=== PATIENT | female | born 1950 | race Caucasian/White ===

== ENCOUNTER → 2024-03-31 07:23 | Outpatient (REF) | payer MEDICARE, SELFPAY | LOC: RAD 07:23 | PROVIDERS: ATTENDING PHYSICIAN Internal Medicine Critical Care Medicine | DX: Z87.891 Personal history of nicotine dependence (principal) | CPT/HCPCS: 71271 ==

== ENCOUNTER 2024-08-10 16:58 | Inpatient (IN) | payer MEDICARE, SELFPAY ==
--- NOTE | 2024-08-10 13:28 | ED.GENMED ---
ED Provider Triage
<Samantha Lema PA-C - Last Filed: 08/10/24 13:34>
-
Patient seen by provider in Triage?: Seen in Triage
Attestation: A medical screening examination has been initiated by a qualified medical provider. Based on the assessment performed at this time, it has been determined that an emergent medical condition may exist and the patient has been informed
that further medical evaluation and possible additional diagnostic testing may be needed.
HPI: 74yoF here with SOB and productive cough x 4 days. Oxygen saturation in the 80s at PCP's office today. Hx of COPD, not on oxygen.
GENERAL: Alert , in no apparent distress
EYE: No visual abnormalities.
NECK: Trachea midline
ENT: No visible abnormalities.
LUNGS: No acute respiratory distress
NEUROLOGICAL: Alert and oriented
SKIN: Skin intact. No visible changes.
MUSCULOSKELETAL: Moving extremities normally
PSYCH: Normal and appropriate interaction.
This is a medical evaluation conducted in person to initiate diagnostic evaluation and provide initial therapeutics. Please see further documentation by the treating clinician.
Cardiac labs, COVID/flu swab, EKG, and CXR ordered.
History of Present Illness
<Samantha Lema PA-C - Last Filed: 08/10/24 13:34>
General
Chief Complaint: Breathing Problem
Time Seen by Provider: 08/10/24 14:17
<Selene Burrows MD - Last Filed: 08/10/24 15:25>
History of Present Illness
History of Present Illness:
Patient is a 74-year-old woman with history of COPD, CAD status post bypass presenting to the emergency department with shortness of breath. Patient states for the past few days she has had cough congestion and worsening phlegm. She is been having
some dyspnea on exertion. He checked her oxygen this morning and it was 88%. She had an albuterol nebulizer treatment and called her rn integrated who told her to come here. Patient does state that she feels slightly better after the treatment.
She has been having some chills but no fever. No chest pain. No leg swelling or hemoptysis. No nausea vomiting or diarrhea
Phy Exam
<Selene Burrows MD - Last Filed: 08/10/24 15:25>
Physical Exam
Physical Exam:
GENERAL: in no acute distress
HEENT: normocephalic, extraocular movements intact, moist oral mucosa
NECK: normal inspection
RESPIRATORY: no respiratory distress, intermittent wheezing, rhonchorous breath sounds left base
CARDIOVASCULAR: regular rate and rhythm
ABDOMEN/: soft, non-distended, non-tender to palpation, no rebound or guarding
EXTREMITIES: non-tender, no edema/swelling
NEUROLOGIC: awake and alert, moves all extremities
SKIN: warm
Scores
<Selene Burrows MD - Last Filed: 08/10/24 15:25>
Heart Failure Risk
Heart Failure Risk Score: Not Applicable
Course
<Samantha Lema PA-C - Last Filed: 08/10/24 13:34>
Orders/Labs/Results
Orders:
Orders
08/10/24 13:31
Electrocardiogram (*1) Urgent
Reason for Study: Shortness of Breath
EKG- Treatment ONCE
CR Chest - 2 Views Urgent
Comment:
Reason For Exam: SOB
08/10/24 13:38
Comprehensive Metabolic Panel Urgent
Troponin I Urgent
08/10/24 13:42
COVID-19 Antigen Urgent
Source: Nasal Swab
Complete Blood Count/With Diff Urgent
Influenza A+B Rapid Molecular Urgent
ALEXX Source: Nasal Swab
Specimen Description:
08/10/24 15:07
Azithromycin 500 mg/250 ml [Zithromax Infusion] 500 mg in 250 ml IV NOW
CefTRIAXone [Rocephin] 2,000 mg IV NOW STA
Ipratropium/Albuterol Sulfate [Duoneb] 3 ml INH R NOW ONE
MethylPREDNISolone PF [Solu-Medrol Pf] 125 mg IV NOW STA
Abnormal Lab Results
08/10/24 08/10/24
13:38 13:42
WBC 18.8 H 10^3/uL
(4.8-10.8)
Abs Immat Gran (auto) 0.3 H 10^3/uL
(0-0.05)
Absolute Neuts (auto) 15.0 H 10^3/uL
(1.4-6.5)
Absolute Monos (auto) 1.1 H 10^3/uL
(0.1-0.6)
Immature Gran % 1.4 H %
(0-0.5)
Neutrophils % 79.8 H %
(42.2-75.2)
Lymphocytes % 12.0 L %
(20.5-51.1)
Glucose 218 H mg/dl
(70-99)
08/10/24 13:42
08/10/24 13:38
Vital Signs
Initial and Last Documented VS:
Initial Vital Signs
Temp Pulse Resp BP Pulse Ox
97.7 F 116 18 140/104 95
08/10/24 13:29 08/10/24 13:29 08/10/24 13:29 08/10/24 13:29 08/10/24 13:29
Last Documented Vital Signs
Temp Pulse Resp BP Pulse Ox
97.7 F 116 18 140/104 95
08/10/24 13:29 08/10/24 13:29 08/10/24 13:29 08/10/24 13:29 08/10/24 15:22
Pramodlt;Selene Burrows MD - Last Filed: 08/10/24 15:25>
Orders/Labs/Results
Orders:
Orders
08/10/24 13:31
Electrocardiogram (*1) Urgent
Reason for Study: Shortness of Breath
EKG- Treatment ONCE
CR Chest - 2 Views Urgent
Comment:
Reason For Exam: SOB
08/10/24 13:38
Comprehensive Metabolic Panel Urgent
Troponin I Urgent
08/10/24 13:42
COVID-19 Antigen Urgent
Source: Nasal Swab
Complete Blood Count/With Diff Urgent
Influenza A+B Rapid Molecular Urgent
ALEXX Source: Nasal Swab
Specimen Description:
08/10/24 15:07
Azithromycin 500 mg/250 ml [Zithromax Infusion] 500 mg in 250 ml IV NOW
CefTRIAXone [Rocephin] 2,000 mg IV NOW STA
Ipratropium/Albuterol Sulfate [Duoneb] 3 ml INH R NOW ONE
MethylPREDNISolone PF [Solu-Medrol Pf] 125 mg IV NOW STA
Abnormal Lab Results
08/10/24 08/10/24
13:38 13:42
WBC 18.8 H 10^3/uL
(4.8-10.8)
Abs Immat Gran (auto) 0.3 H 10^3/uL
(0-0.05)
Absolute Neuts (auto) 15.0 H 10^3/uL
(1.4-6.5)
Absolute Monos (auto) 1.1 H 10^3/uL
(0.1-0.6)
Immature Gran % 1.4 H %
(0-0.5)
Neutrophils % 79.8 H %
(42.2-75.2)
Lymphocytes % 12.0 L %
(20.5-51.1)
Glucose 218 H mg/dl
(70-99)
08/10/24 13:42
08/10/24 13:38
Vital Signs
Initial and Last Documented VS:
Initial Vital Signs
Temp Pulse Resp BP Pulse Ox
97.7 F 116 18 140/104 95
08/10/24 13:29 08/10/24 13:29 08/10/24 13:29 08/10/24 13:29 08/10/24 13:29
Last Documented Vital Signs
Temp Pulse Resp BP Pulse Ox
97.7 F 116 18 140/104 95
08/10/24 13:29 08/10/24 13:29 08/10/24 13:29 08/10/24 13:29 08/10/24 15:22
<Selene Burrows MD - Last Filed: 08/10/24 15:25>
MDM/Problems Addressed
Differential Diagnosis Includes:
Patient is a 74-year-old woman with history of COPD, CAD presenting to the emergency department with cough congestion and shortness of breath for the past few days. Vitals here are notable for an oxygen saturation of 95%. Exam does show
intermittent wheezing as well as rhonchorous breath sounds to left lower base. Concern for COPD exacerbation or pneumonia. Could be atypical ACS given the dyspnea on exertion. History exam not consistent with PE. Blood work obtained prior to
evaluation does show leukocytosis. Troponin is normal. COVID is negative. Chest x-ray per my interpretation with possible opacity in the left lower lobe. Given the leukocytosis x-ray and symptoms we will treat with ceftriaxone and azithromycin.
Will also give nebulizer treatment as well as steroids given the wheezing. Patient will need admission. Discussed with hospitalist who accepted.
<Selene Burrows MD - Last Filed: 08/10/24 15:25>
*Critical Care Note
Total Time (30-74mins, 75-104mins- exclusive of procedures): Not Applicable
ED Attending Note
<Samantha Lema PA-C - Last Filed: 08/10/24 13:34>
-
Portions of this chart may have been created with voice recognition software.� Occasional wrong word or��sound alike� substitutions may have occurred due to the inherent limitations of voice recognition software.
Discharge Plan
Departure
Patient Disposition: Admit
Date of Disposition: 08/10/24
Time of Disposition: 15:24
Presentation/result/management discussed w/ accepting MD/DO: Hospitalist
Discharge Problem:
Pneumonia, COPD exacerbation
Prescriptions:
No Action
ibuprofen [Advil] 200 MG tablet
400 mg PO Q4HPRN PRN (Reason: mild pain)
metformin 500 mg Tablet
500 mg PO HS
fluticasone propion-salmeterol [Wixela Inhub] 250-50 mcg/dose Blister With Device
1 inh INHALATION R BID
montelukast 10 mg Tablet
10 mg PO HS
albuterol sulfate 90 mcg/actuation Hfa Aerosol Inhaler
2 puff INHALATION R Q6HPRN PRN (Reason: sob)
guaifenesin [Mucinex] 600 mg Tablet Extended Release 12hr
600 mg PO [id number] PRN (Reason: cough)
aspirin 81 MG tablet,delayed release (DR/EC)
81 mg PO HS
Rx Instructions:
after 4 weeks
Referrals:
UNKNOWN - PT DOES,NOT KNOW [Family Provider] -
Interventions
Interventions:
*Risk Screen - Suicide Last Done: 08/10/24 13:29
*General Assessment Last Done: 08/10/24 13:29
*Neglect/Abuse Screening Last Done: 08/10/24 13:29
ED- Fall Risk Assessment Last Done: 08/10/24 15:22
*ED COVID-19 Vaccine History Last Done: 08/10/24 13:29
ED- Cardiac Assessment Last Done: 08/10/24 15:22
ED- Pulmonary Assessment Last Done: 08/10/24 15:22
Discharge Date and Time
Print Language: YAKUT
[2024-08-10 13:29] VITALS: BP 140/104
[2024-08-10 13:47] LABS: % Basophils 0.3 % (0-2); % Eosinophils 0.5 % (0-6); % Immature Granulocytes 1.4 % (0-0.5); % Neutrophils 79.8 % (42.2-75.2); Absolute Basophils 0.1 10^3/uL (0-0.2); Absolute Eosinophils 0.1 10^3/uL (0-0.7); Absolute Immature Granulocytes 0.3 10^3/uL (0-0.05); Absolute Lymphocytes 2.3 10^3/uL (1.2-3.4); Absolute Monocytes 1.1 10^3/uL (0.1-0.6); Hematocrit 44.9 % (37.0-47.0); Hemoglobin 15.1 g/dL (12.0-16.0); Mean Corp Hgb Conc. 33.6 g/dL (33.0-37.0); Mean Corpuscular Hgb 28.5 pg (27.0-31.0); Mean Corpuscular Volume 84.9 fL (81.0-99.0); Mean Platelet Volume 9.6 fL (7.4-10.4); Nucleated Red Blood Cells % 0 %; Platelet Count 223 10^3/uL (130-400); Red Blood Cell Count 5.29 10^6/uL (4.20-5.40); Red Cell Dist. Width 13.6 % (11.5-14.5); White Blood Cell Count 18.8 10^3/uL (4.8-10.8)
[2024-08-10 13:58] LABS: ALT (SGPT) 21 U/L (0-35); AST (SGOT) 17 U/L (14-36); Albumin 4.4 g/dl (3.5-5.0); Alkaline Phosphatase 83 U/L (38-126); Blood Urea Nitrogen 14 mg/dl (7-17); Calcium 9.9 mg/dl (8.4-10.2); Carbon Dioxide 26 mmol/L (22-30); Chloride 99 mmol/L (98-107); Glucose 218 mg/dl (70-99); Potassium 4.2 mmol/L (3.5-5.1); Sodium 137 mmol/L (135-145); Total Bilirubin 0.8 mg/dl (0.2-1.3); Total Protein 7.4 g/dl (6.3-8.2); eGFR > 60.00
[2024-08-10 14:09] LABS: COVID-19 Antigen Negative (Negative)
[2024-08-10 14:10] LABS: Troponin I < 0.012 ng/ml
[2024-08-10 15:23] VITALS: BMI 27.3
[2024-08-10 15:37] VITALS: BP 148/86
[2024-08-10] MEDS: ROCEPHIN 2000 MG IV (15:37)
[2024-08-10] MEDS: DUONEB 3 ML INH ×2 (15:37→19:28)
[2024-08-10] MEDS: SOLU-MEDROL PF 125 MG IV (15:37)
[2024-08-10 16:00] VITALS: BP 161/80
[2024-08-10] MEDS: ZITHROMAX INFUSION 250 IV (16:16)
--- NOTE | 2024-08-10 16:27 | HPS.HSE ---
Family Physician
-
Family Physician: Prakash Armendariz
Chief Complaint
-
SOB
History of Present Illness
74yo F with PMHX of COPD, DM, CAD s/p CABG, HLD obesity came with SOB for 4 days that was gradually worsening with sputum that eventually became greenish. Chest XR without vascyular congestion. No chest pain noted. concern for LLL pneumonia
Medical History
Past Medical History
Past Medical History: Reports Other
Additional Past Medical History:
See HPI
Past Surgical History: Reports None
Social History
Tobacco: Non-smoker
Alcohol: None
Drug: None
Family History
Family History: Not pertinent
Allergies / Home Medications
Allergies reflects when Allergies were last updated in mii.
Home Medications with original date entered in mii
Allergy/Medication List:
Allergies
Allergy/AdvReac Type Severity Reaction Status Date / Time
perfume Allergy Shortness Verified 08/10/24 13:33
of Breath
Bandaids Allergy Hives Uncoded 08/10/24 13:33
Warm Rooms Allergy Coughing Uncoded 08/10/24 13:33
spells &
difficulty
breathing
Home Medications
ibuprofen 200 mg tablet (Advil) 400 mg PO Q4HPRN PRN mild pain 09/26/15
albuterol sulfate 90 mcg/actuation aerosol inhaler 2 puff inhalation R Q6HPRN PRN sob 08/10/24
aspirin 81 mg tablet,delayed release 81 mg PO HS cad 08/10/24
fluticasone 250 mcg-salmeterol 50 mcg/dose blistr powdr for inhalation (Wixela Inhub) 1 inh inhalation R BID 08/10/24
guaifenesin 600 mg tablet, extended release 12 hr (Mucinex) 600 mg PO [id number] PRN cough 08/10/24
metformin 500 mg tablet 500 mg PO HS 08/10/24
montelukast 10 mg tablet 10 mg PO HS 08/10/24
Review of Systems
-
History Source: Patient
A 12 point ROS was completed and negative except as noted: Yes
Respiratory: Reports See HPI
Physical Exam
Vital Signs
Vital Signs
Temp Pulse Resp BP Pulse Ox
97.7 F 116 18 148/86 96
08/10/24 13:29 08/10/24 13:29 08/10/24 13:29 08/10/24 15:37 08/10/24 15:37
Physical Exam
General: Well Nourished, No Apparent Distress and Comfortable
HEENT: NormoCephalic, Anicteric and Moist mucous membranes
Respiratory: Wheezes and Rales; No Crackles
Cardiac: S1/S2 and Regular Rhythm
GI: Soft, Non Tender and Non Distended
Genito-urinary: No costovertebral tender
Musculoskeletal: No Clubbing, No Cyanosis and No Edema
Skin: Warm
Neuro: Awake, Alert, Oriented and AO x 3
Psych: Calm
Laboratory Results
-
08/10/24 13:42
08/10/24 13:38
Laboratory Results
Total Bilirubin 0.8 mg/dl (0.2-1.3) 08/10/24 13:38
AST 17 U/L (14-36) 08/10/24 13:38
ALT 21 U/L (0-35) 08/10/24 13:38
Alkaline Phosphatase 83 U/L (38-126) 08/10/24 13:38
Troponin I < 0.012 ng/ml 08/10/24 13:38
Data Reviewed
-
Diagnostic Radiology: Report Reviewed by me
Lab Data: Labs Reviewed by me
Impression/Plan
-
A/p:
#Acute hypoxic insufficiency 2/2 COPD exacerbation 2/2 LLL CAP with unspecified organism
Sputum Cx, Legionella urinary Ag, S.Pneumonia urinary Ag
Ceftriaxone/DOxy
Taper steroids
cont bronchodilators
Wean off O2
COVID-19 and Influenza PCR neg in ED
EKG without signs of ACS - initial trop neg - no concern for cardiac component
#DM type 2 with neuropathy
accuchecks, Insulin SS, DM diet
Check HgbA1c
hold Metformin
#CAD, stable
#HLD
#essential HTN
cont home meds
DVT ppx on lovenox
FUll code
I have spent at least 79min reviewing chart, test results and direct patient care
[2024-08-10 16:41] LABS: NT-proBNP 171 pg/ml
[2024-08-10 18:28] LABS: Glucose - Point of Care 299 mg/dl (70-99)
[2024-08-10 18:29] VITALS: BP 143/71
[2024-08-10] MEDS: LOVENOX 40 MG SC (18:36)
[2024-08-10] MEDS: NOVOLOG FLEXPEN-LOW RESISTANCE 3 UNITS SC (18:37)
[2024-08-10] MEDS: ADVAIR HFA 115/21 MCG INHALER 2 PUFF INH (19:29)
[2024-08-10] MEDS: VIBRAMYCIN 100 MG PO (20:13)
[2024-08-10] MEDS: SINGULAIR 10 MG PO (20:17)
[2024-08-10] MEDS: ASPIR LOW (ENTERIC COATED) 81 MG PO (20:17)
[2024-08-10 21:43] LABS: Glucose - Point of Care 513 mg/dl (70-99)
[2024-08-10 22:54] LABS: Glucose 554 mg/dl (70-99)
[2024-08-10 23:19] VITALS: BP 118/49
[2024-08-10] MEDS: DECADRON 6 MG IV (23:21)
[2024-08-10] MEDS: NOVOLOG FLEXPEN 7 UNITS SC (23:21)
[2024-08-11] VITALS (7 sets, daily range): BP systolic 127–158; BP diastolic 27–90; BMI 31.3
--- NOTE | 2024-08-11 04:46 | DOWNTIME ---
There was a [employer] Downtime on 08/11/2024 from 0100 to 08/11/2024 at 0355. Downtime documentation of patient's care, including medication administrations, has been reconciled in the electronic record per guidelines. Refer to the
patient's paper chart under the miscellaneous tab to see printed paper medication records and downtime forms.
[2024-08-11 05:07] LABS: Glucose - Point of Care 305 mg/dl (70-99)
[2024-08-11 07:28] LABS: % Basophils 0.3 % (0-2); % Immature Granulocytes 1.8 % (0-0.5); % Lymphocytes 15.6 % (20.5-51.1); % Monocytes 2.4 % (1.7-9.3); % Neutrophils 79.9 % (42.2-75.2); Absolute Immature Granulocytes 0.2 10^3/uL (0-0.05); Absolute Lymphocytes 1.6 10^3/uL (1.2-3.4); Absolute Monocytes 0.2 10^3/uL (0.1-0.6); Hematocrit 40.8 % (37.0-47.0); Mean Corp Hgb Conc. 34.3 g/dL (33.0-37.0); Mean Corpuscular Hgb 28.6 pg (27.0-31.0); Mean Corpuscular Volume 83.3 fL (81.0-99.0); Mean Platelet Volume 10.4 fL (7.4-10.4); Nucleated Red Blood Cells % 0 %; Platelet Count 201 10^3/uL (130-400); Red Cell Dist. Width 13.2 % (11.5-14.5)
[2024-08-11] MEDS: ADVAIR HFA 115/21 MCG INHALER 2 PUFF INH ×2 (07:51→19:41)
[2024-08-11] MEDS: DUONEB 3 ML INH ×4 (07:52→19:41)
[2024-08-11 08:02] LABS: Glucose - Point of Care 300 mg/dl (70-99)
[2024-08-11 08:04] LABS: ALT (SGPT) 20 U/L (0-35); AST (SGOT) 16 U/L (14-36); Albumin 3.9 g/dl (3.5-5.0); Alkaline Phosphatase 78 U/L (38-126); Blood Urea Nitrogen 21 mg/dl (7-17); Calcium 9.6 mg/dl (8.4-10.2); Carbon Dioxide 22 mmol/L (22-30); Chloride 100 mmol/L (98-107); Estimated Creatinine Clearance 70 ml/min; Glucose 326 mg/dl (70-99); Magnesium 2.3 mg/dl (1.6-2.3); Potassium 4.7 mmol/L (3.5-5.1); Sodium 136 mmol/L (135-145); Total Bilirubin 0.5 mg/dl (0.2-1.3); Total Protein 6.7 g/dl (6.3-8.2); eGFR > 60.00
[2024-08-11] MEDS: DECADRON 6 MG IV ×2 (08:27→20:47)
[2024-08-11] MEDS: VIBRAMYCIN 100 MG PO ×2 (08:27→20:47)
[2024-08-11] MEDS: NOVOLOG FLEXPEN-MODERATE RESISTANCE 7 UNITS SC ×2 (08:28→13:49)
[2024-08-11 09:43] LABS: Glycohemoglobin (HgbA1c) 8.6 % (4.0-5.6)
--- NOTE | 2024-08-11 11:50 | W.PN.HOSP.TC ---
Today's Communication/Plan
-
off O2, but dyspnea on excertion persists - decrease Decadron to BID
already increased insulin SS this AM - will follow trend and increase further if remains hyperglycemic
Assessment / Plan
Assessment / Plan
74yo F with PMHX of COPD, DM, CAD s/p CABG, HLD obesity came with SOB for 4 days that was gradually worsening with sputum that eventually became greenish. Chest XR without vascyular congestion. No chest pain noted. concern for LLL pneumonia
A/p:
#Acute hypoxic insufficiency 2/2 COPD exacerbation 2/2 LLL CAP with unspecified organism
Sputum Cx, Legionella urinary Ag, S.Pneumonia urinary Ag
Ceftriaxone/DOxy
Taper steroids
cont bronchodilators
Wean off O2
COVID-19 and Influenza PCR neg in ED
EKG without signs of ACS - initial trop neg - no concern for cardiac component
#DM type 2 with neuropathy with hyperglycemia
accuchecks, Insulin SS, DM diet
HgbA1c 8.6
hold Metformin
WIll need additional meds upon d/c, will prefer SGLT-2 inh
High dose insulin SS
#CAD, stable
#HLD
#essential HTN
cont home meds
DVT ppx on lovenox
FUll code
I have spent at least 59min reviewing chart, test results and direct patient care
Anticipated Discharge: > 48 hours
Subjective/Interval History
-
Date of Service: August 11, 2024
Objective Data
-
Labs:
Laboratory Results
08/10/24 08/11/24
13:42 07:00
WBC 18.8 H 10.0
Hgb 15.1 14.0
Hct 44.9 40.8
Plt Count 223 201
Sodium 136
Potassium 4.7
Chloride 100
Carbon Dioxide 22
BUN 21 H
Creatinine 0.7
Glucose 326 H
Calcium 9.6
Total Bilirubin 0.5
AST 16
ALT 20
Alkaline Phosphatase 78
Vital Signs:
Vital Signs
Temp Pulse Resp BP Pulse Ox
97.6 F 82 16 158/27 95
08/11/24 07:00 08/11/24 11:19 08/11/24 11:19 08/11/24 07:00 08/11/24 11:19
I&O
08/10/24 08/11/24 08/12/24
06:59 06:59 06:59
Intake Total 240 / 240
Balance 240 / 240
Review of Systems
-
History Source: Patient
Respiratory: Reports Trouble Breathing
Physical Exam
-
General: No Apparent Distress
HEENT: Normocephalic
Respiratory: Wheezes
Cardiac: Regular Rhythm
GI: Soft, Nontender and Nondistended
Musculoskeletal: No Edema
Skin: Warm
Neuro: Awake, Alert, Oriented and AO x 3
[2024-08-11 11:52] LABS: Glucose - Point of Care 301 mg/dl (70-99)
--- NOTE | 2024-08-11 16:36 | CM ---
Reviewed chart, met with patient to obtain information for assessment. Patient stated that she lives with her spouse in a first floor apartment with 12 steps as the apartment is the first floor to a house. She described herself as independent with
her ADLs, personal care, dressing and bathing. 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 She drives and can get to all of her appointments and do all of her own errands.
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
Patient stated that she has a cane and walker that she does not use. She has a commode and a shower chair.
She had VN many years ago.
She has been to acute rehab but not a SNF.
Patient has a prescription plan and patient uses, [facility] [address] in [place].
Patient's PCP is, Prakash Armendariz.
Patient would like to return home when cleared medically and does not anticipate any needs.
Plan: Case management will continue to follow and assist with discharge planning. Home when medically stable.
[2024-08-11 16:37] LABS: Glucose - Point of Care 345 mg/dl (70-99)
[2024-08-11] MEDS: STERILE WATER FOR INJECTION 10 ML IV (17:28)
[2024-08-11] MEDS: ROCEPHIN 1000 MG IV (17:30)
[2024-08-11] MEDS: LOVENOX 40 MG SC (17:32)
[2024-08-11] MEDS: NOVOLOG FLEXPEN-HIGH RESISTANCE 10 UNITS SC (17:32)
[2024-08-11] MEDS: NOVOLOG FLEXPEN-MODERATE RESISTANCE SC (17:47)
[2024-08-11] MEDS: ASPIR LOW (ENTERIC COATED) 81 MG PO (20:51)
[2024-08-11] MEDS: SINGULAIR 10 MG PO (20:51)
[2024-08-11 21:41] LABS: Glucose - Point of Care 341 mg/dl (70-99)
[2024-08-11] MEDS: NOVOLOG FLEXPEN 10 UNITS SC (22:07)
[2024-08-12 00:18] LABS: Glucose - Point of Care 275 mg/dl (70-99)
--- NOTE | 2024-08-12 00:18 | PTCARENOTE ---
Pt's glucose 341, MANAGER OCCUPATIONAL notified. Novolog 10u ordered (see MAR). Rechecked 2 hours later, glucose 275. Plan of care ongoing.
[2024-08-12 03:28] VITALS: BP 110/55
[2024-08-12 06:00] VITALS: BMI 31.7
[2024-08-12] MEDS: DUONEB 3 ML INH ×4 (07:22→19:18)
[2024-08-12] MEDS: ADVAIR HFA 115/21 MCG INHALER 2 PUFF INH ×2 (07:22→19:19)
[2024-08-12 07:48] VITALS: BP 135/75
[2024-08-12] MEDS: NOVOLOG FLEXPEN-HIGH RESISTANCE 10 UNITS SC ×2 (07:59→13:05)
[2024-08-12] MEDS: VIBRAMYCIN 100 MG PO ×2 (07:59→21:47)
[2024-08-12] MEDS: DECADRON 6 MG IV (07:59)
[2024-08-12 08:00] LABS: Glucose - Point of Care 324 mg/dl (70-99)
[2024-08-12 11:10] VITALS: BP 134/71
[2024-08-12 11:24] LABS: Glucose - Point of Care 348 mg/dl (70-99)
--- NOTE | 2024-08-12 12:00 | W.PN.HOSP.TC ---
Today's Communication/Plan
-
had some chills overnight - not meeting criteria for oral Abx yet
switch to Prednisone
Assessment / Plan
Assessment / Plan
74yo F with PMHX of COPD, DM, CAD s/p CABG, HLD obesity came with SOB for 4 days that was gradually worsening with sputum that eventually became greenish. Chest XR without vascular congestion. No chest pain noted. concern for LLL pneumonia and COPD
A/p:
#Acute hypoxic insufficiency 2/2 COPD exacerbation 2/2 LLL CAP with unspecified organism
Sputum Cx, Legionella urinary Ag, S.Pneumonia urinary Ag
Ceftriaxone/DOxy
Taper steroids
cont bronchodilators
Wean off O2
COVID-19 and Influenza PCR neg in ED
EKG without signs of ACS - initial trop neg - no concern for cardiac component
#DM type 2 with neuropathy with hyperglycemia
accuchecks, Insulin SS, DM diet
HgbA1c 8.6
hold Metformin
WIll need additional meds upon d/c, will prefer SGLT-2 inh
High dose insulin SS
#CAD, stable
#HLD
#essential HTN
cont home meds
DVT ppx on lovenox
FUll code
I have spent at least 59min reviewing chart, test results and direct patient care
Anticipated Discharge: Within 24 hours
Subjective/Interval History
-
Date of Service: August 12, 2024
Objective Data
-
Vital Signs:
Vital Signs
Temp Pulse Resp BP Pulse Ox
97.7 F 78 18 134/71 96
08/12/24 11:10 08/12/24 11:12 08/12/24 11:12 08/12/24 11:10 08/12/24 11:12
I&O
08/11/24 08/12/24 08/13/24
06:59 06:59 06:59
Intake Total 240 / 240 120 / 120
Balance 240 / 240 120 / 120
Review of Systems
-
History Source: Patient
All other systems: Reviewed and negative
Constitutional: Reports Chills
Physical Exam
-
General: No Apparent Distress
HEENT: Normocephalic
Respiratory: Clear to Auscultation
Cardiac: Regular Rhythm
GI: Soft, Nontender and Nondistended
Neuro: Awake, Alert, Oriented and AO x 3
Psych: Calm
[2024-08-12 15:35] VITALS: BP 157/75
[2024-08-12 16:43] LABS: Glucose - Point of Care 265 mg/dl (70-99)
[2024-08-12] MEDS: NOVOLOG FLEXPEN-HIGH RESISTANCE 7 UNITS SC (17:13)
[2024-08-12] MEDS: ROCEPHIN 1000 MG IV (17:14)
[2024-08-12] MEDS: LOVENOX 40 MG SC (17:14)
[2024-08-12] MEDS: STERILE WATER FOR INJECTION 10 ML IV (17:15)
[2024-08-12 19:44] VITALS: BP 146/79
[2024-08-12] MEDS: SINGULAIR 10 MG PO (21:48)
[2024-08-12] MEDS: ASPIR LOW (ENTERIC COATED) 81 MG PO (21:48)
[2024-08-12 22:00] LABS: Glucose - Point of Care 261 mg/dl (70-99)
[2024-08-12 22:30] VITALS: BP 137/80
[2024-08-13 03:47] VITALS: BP 148/69
[2024-08-13] MEDS: DUONEB 3 ML INH ×2 (07:23→11:13)
[2024-08-13] MEDS: ADVAIR HFA 115/21 MCG INHALER 2 PUFF INH (07:24)
[2024-08-13 07:48] LABS: Glucose - Point of Care 169 mg/dl (70-99)
[2024-08-13 07:52] VITALS: BP 144/85
[2024-08-13] MEDS: NOVOLOG FLEXPEN-HIGH RESISTANCE 2 UNITS SC (10:04)
[2024-08-13] MEDS: VIBRAMYCIN 100 MG PO (10:04)
[2024-08-13] MEDS: DELTASONE 40 MG PO (10:04)
--- NOTE | 2024-08-13 11:39 | W.PN.HOSP.TC ---
Today's Communication/Plan
-
dc
Assessment / Plan
Assessment / Plan
74yo F with PMHX of COPD, DM, CAD s/p CABG, HLD obesity came with SOB for 4 days that was gradually worsening with sputum that eventually became greenish. Chest XR without vascular congestion. No chest pain noted. concern for LLL pneumonia and COPD,
improved on steroid taper and Abx. No fever or leukocytosis, hypoxia resolved and patient has less SOB. Able to walk in the hallway. Started Jardiance 2/2 poor DM control. Medically stable for d/c
A/p:
#Acute hypoxic insufficiency 2/2 COPD exacerbation 2/2 LLL CAP with unspecified organism
Sputum Cx, Legionella urinary Ag, S.Pneumonia urinary Ag
Ceftriaxone/DOxy
Taper steroids
cont bronchodilators
Wean off O2
COVID-19 and Influenza PCR neg in ED
EKG without signs of ACS - initial trop neg - no concern for cardiac component
#DM type 2 with neuropathy with hyperglycemia
accuchecks, Insulin SS, DM diet
HgbA1c 8.6
hold Metformin
WIll need additional meds upon d/c, will prefer SGLT-2 inh
High dose insulin SS
#CAD, stable
#HLD
#essential HTN
cont home meds
DVT ppx on lovenox
FUll code
I have spent at least 39min reviewing chart, test results and direct patient care
Anticipated Discharge: Today
Subjective/Interval History
-
Date of Service: August 13, 2024
Objective Data
-
Vital Signs:
Vital Signs
Temp Pulse Resp BP Pulse Ox
98.4 F 78 16 144/85 96
08/13/24 07:52 08/13/24 11:14 08/13/24 11:14 08/13/24 07:52 08/13/24 07:52
I&O
08/12/24 08/13/24 08/14/24
06:59 06:59 06:59
Intake Total 120 / 120 1320 / 1320
Balance 120 / 120 1320 / 1320
Review of Systems
-
History Source: Patient
All other systems: Reviewed and negative
Physical Exam
-
General: No Apparent Distress
HEENT: Normocephalic
Respiratory: Clear to Auscultation
Cardiac: Regular Rhythm
GI: Soft, Nontender and Nondistended
Musculoskeletal: No Cyanosis and No Edema
Neuro: Awake, Alert, Oriented and AO x 3
Psych: Calm
--- NOTE | 2024-08-13 11:47 | W.DCSUMMARY ---
Addendum entered and electronically signed by Daniel De La Garza MD 08/13/24 13:06:
Sent glipizide instead of Jardiance 2/2 insurance concernes
Original Note:
Discharge Summary
Discharge Data
Date of Admission: 08/10/24
Date of Discharge: 08/13/24
-
Pending Results: No
Hospital Course
74yo F with PMHX of COPD, DM, CAD s/p CABG, HLD obesity came with SOB for 4 days that was gradually worsening with sputum that eventually became greenish. Chest XR without vascular congestion. No chest pain noted. concern for LLL pneumonia and COPD,
improved on steroid taper and Abx. No fever or leukocytosis, hypoxia resolved and patient has less SOB. Able to walk in the hallway. Started Jardiance 2/2 poor DM control. Medically stable for d/c
I have spent at least 39min discharging the patient
A/p:
#Acute hypoxic insufficiency 2/2 COPD exacerbation 2/2 LLL CAP with unspecified organism
#DM type 2 with neuropathy with hyperglycemia
#CAD, stable
#HLD
#essential HTN
Discharge Plan
-
Patient Disposition: Home (Routine Discharge)
Discharge Diagnosis/Procedures: CAP
Diet: Diabetic, Carb Controlled
Activity: As tolerated
Driving Restrictions: As prior to admission
Referrals:
Prakash Armendariz, [Family Provider] -
Prescriptions:
New
Jardiance 10 mg tablet
10 mg PO DAILY Qty: 30 0RF
doxycycline hyclate 100 mg Capsule
100 mg PO Q12 Qty: 8 0RF
cefdinir 300 mg capsule
300 mg PO BID Qty: 8 0RF
prednisone 10 mg Tablet
10 mg PO DIRECTED Qty: 12 0RF
Rx Instructions:
take daily 30mg x2 days, then 20mg x2 days, then 10mg x2 days and stop
acetaminophen [Tylenol] 325 mg tablet
650 mg PO Q6H PRN (Reason: Pain) Qty: 30 0RF
Continued
metformin 500 mg Tablet
500 mg PO HS
fluticasone propion-salmeterol [Wixela Inhub] 250-50 mcg/dose Blister With Device
1 inh INHALATION R BID
montelukast 10 mg Tablet
10 mg PO HS
albuterol sulfate 90 mcg/actuation Hfa Aerosol Inhaler
2 puff INHALATION R Q6HPRN PRN (Reason: sob)
guaifenesin [Mucinex] 600 mg Tablet Extended Release 12hr
600 mg PO [id number] PRN (Reason: cough)
aspirin 81 MG tablet,delayed release (DR/EC)
81 mg PO HS
Rx Instructions:
after 4 weeks
Discontinued
ibuprofen [Advil] 200 MG tablet
400 mg PO Q4HPRN PRN (Reason: mild pain)
Discharge Orders:
Discharge Patient (As Directed); Ordered 08/13/24
Ordered By: Daniel De La Garza
Discharge Date and Time
Print Language: AZERI
[2024-08-13 11:52] LABS: Glucose - Point of Care 236 mg/dl (70-99)
[2024-08-13 11:56] VITALS: BP 161/81
[2024-08-13] MEDS: NOVOLOG FLEXPEN-HIGH RESISTANCE 4 UNITS SC (12:09)
--- NOTE | 2024-08-13 12:24 | CM ---
Reviewed chart. Patient medically stable for discharge. Met with patient and her spouse who was at bedside. He will take patient home. IMM signed and reviewed.
Plan: Case management will continue to follow and assist with discharge planning. Home.
== END 2024-08-13 13:01 | disposition home or self-care (01) | DRG 190 ==
LOC: 3 WEST ACU 16:58
PROVIDERS: Physician Assistant; ADMITTING PHYSICIAN Internal Medicine; EMERGENCY PHYSICIAN Student in an Organized Health Care Education/Training Program; FAMILY PHYSICIAN Internal Medicine
DX: J44.0 Chronic obstructive pulmonary disease with (acute) lower respiratory infection (principal); J18.9 Pneumonia, unspecified organism; J44.1 Chronic obstructive pulmonary disease with (acute) exacerbation; Z11.52 Encounter for screening for COVID-19; R09.02 Hypoxemia; E11.40 Type 2 diabetes mellitus with diabetic neuropathy, unspecified; E78.5 Hyperlipidemia, unspecified; I10 Essential (primary) hypertension; I25.10 Atherosclerotic heart disease of native coronary artery without angina pectoris; E11.65 Type 2 diabetes mellitus with hyperglycemia
CPT/HCPCS: 71046; 80053; 82947; 82962; 83036; 83735; 83880; 84484; 85025; 87205; 87449; 87502; 87811; 87899; 93005; 94640; 96365; 96375; 99285